=== PATIENT | male | born 2000 | race African-American/Black ===

== ENCOUNTER 2020-08-20 15:46 | Inpatient (IN) | payer OTHER ==
[~2020-08-20] VITALS: Ht 175.3 cm; Wt 75.0 kg
[2020-08-20 17:04] LABS: AMPHETAMINES LEVEL URINE NEGATIVE (NEGATIVE); BARBITURATES URINE NEGATIVE (NEGATIVE); BENZODIAZEPINES URINE NEGATIVE (NEGATIVE); CANNABINOIDS URINE POSITIVE (NEGATIVE); COCAINE METABOLITE URINE NEGATIVE (NEGATIVE); METHADONE URINE NEGATIVE (NEGATIVE); OPIATES URINE NEGATIVE (NEGATIVE); PHENCYCLIDINE URINE NEGATIVE (NEGATIVE)
[2020-08-20 17:16] LABS: HEMATOCRIT 42.9 % (42.0-52.0); HEMOGLOBIN 13.8 g/dl (13.5-17.5); MEAN CORPUSCULAR HEMOGLOBIN 26.7 pg (27.0-33.0); MEAN CORPUSCULAR HGB CONC 32.2 g/dl (32.0-36.5); MEAN CORPUSCULAR VOLUME 83.1 fl (80.0-96.0); PLATELET COUNT, AUTOMATED 179 10^3/uL (150-450); RED BLOOD COUNT 5.16 10^6/uL (4.30-6.10); WHITE BLOOD COUNT 5.7 10^3/uL (4.0-10.0)
[2020-08-20 17:19] LABS: ACETAMINOPHEN LEVEL < 2.0 UG/ML (10.0-30.0); ALT/SGPT 17 U/L (12-78); BILIRUBIN,DIRECT 0.3 MG/DL (0.0-0.2); BILIRUBIN,TOTAL 1.3 MG/DL (0.2-1.0); BLOOD UREA NITROGEN 9 MG/DL (7-18); CALCIUM LEVEL 9.5 MG/DL (8.5-10.1); CARBON DIOXIDE LEVEL 29 MEQ/L (21-32); CHLORIDE LEVEL 105 MEQ/L (98-107); CREATININE FOR GFR 0.98 MG/DL (0.70-1.30); ETHYL ALCOHOL (ETHANOL) 0.003 % (0.000-0.010); GLUCOSE, FASTING 78 MG/DL (70-100); POTASSIUM SERUM 3.7 MEQ/L (3.5-5.1); SALICYLATE LEVEL < 1.7 MG/DL (5.0-30.0); SODIUM LEVEL 139 MEQ/L (136-145); TOTAL PROTEIN 7.8 GM/DL (6.4-8.2)
[2020-08-20] MEDS ORDERED: traZODone 50 MG TAB PO PRN (18:15)
[2020-08-20] MEDS ORDERED: ACETAMINOPHEN TAB 650MG DOSE (2X325MG) PO PRN (18:15)
[2020-08-20] MEDS ORDERED: MAALOX 30 ML SUSP *UDC PO PRN (18:15)
[2020-08-20] MEDS ORDERED: MOM 30ML SUSPENSION UDC PO PRN (18:15)
[2020-08-20 22:50] VITALS: BP 108/58
[2020-08-21 06:25] VITALS: BP 98/57
[2020-08-21] MEDS: hydrOXYzine 50 MG TAB PO SCH ×3 (15:06→23:35)
--- NOTE | 2020-08-21 16:16 | MHHPEPDOC ---
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 He reports that this feeling of suicidality started approximately a week ago. But he reports that he has been stressed for over a year since his being stationed at [employer]. PER ED REPORT: Pt was brought to the ED by [facility] after pt voiced SI with plan to drink antifreeze. Pt states, "I've been feeling suicidal and I want to drink antifreeze." Pt reports struggling with suicidal thoughts for the past few weeks, however thoughts have intensified after getting in trouble for lying at work. Pt reports he traveled to [place] over the weekend after someone inspired him on YouTube so he went to see a concert. It was reported pt. was supposed to be on staff duty and ended up lying about where he was over the weekend, but he admits telling the truth. Pt identifies suicidal stressors as being bullied by his [employer] and sees no other way out other than killing himself. He believes his [employer] is toxic and is causing his suicidal thoughts. He continues to voice SI plan(as described above). Psychiatric Review of Systems Depression (2 or more weeks): depressed mood, feelings of worthlesness, suicidal thoughts Clau (4 or more days of): irritable/elevated mood Psychosis: denies PTSD: denies Anxiety: denies Past Psychiatric History Previous Psychiatric Diagnosis: None Previous Psychiatric Admissions: This is his first admission. Suicide Attempts: Denies any past attempt. Psychiatric Follow-up: Patient will follow up at [employer]. Psychiatric medications: Patient does not take any psychiatric medications he is not requesting any. Past Medical History Medical Problems Reports no contributory medical history states he has asthma surgeries: Oral surgery Allergies: Seasonal allergies Head Injury: No Seizures: No Hospitalizations: No Surgeries: No Family Medical/Psychiatric HX Medical Problems Maternal grandfather and aunt with "Split Personalities" when asked about whether or not he feels this is schizophrenia he states "I do not know" Psychiatric Disorders: Yes Addiction: No Suicide Attemps/Completions: No Addiction History denies Social History Childhood: Born in [facility]. Grew up with mom father was in the picture occasionally has an older sister and a half brother. States that he did well in elementary school his grades dropped in middle school. Describes his childhood "broken, rough " Abuse/Trauma: Denied. Current Living Situation: [place] post. Education: High school diploma. Employment: Active duty soldier. Social Support: and sister. Legal: None. Marital: Stressors: Work, family. Mental Status Examination General Appearance: well groomed, appears stated age, hospital scubs/clothing Build: average Demeanor: average Eye Contact: average Activity: average Speech: clear, normal volume, reg/rate,rhythm,volume Mood: depressed, anxious Affect: full Thought Process: logical/linear Thought Content (Delusions): none reported Thought Content (Other): none reported Thought Content (Aggressive): none reported Perception (Hallucinations): none reported Perception (Other): none reported Cognition (Impairment of): none reported Cognition(Intelligence Est.): average Oriented: Awake, Alert, Oriented times three Insight: fair Judgment: Fair Psychosis: Denies Diagnoses Unspecified depressive disorder A-FIB/CHADSVASC A-FIB History Current/History of A-Fib/PAF?: No Current PO Anticoag Therapy: No Assessment 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 He reports that this feeling of suicidality started approximately a week ago. But he reports that he has been stressed for over a year since his being stationed at [employer]. 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 He made a suicidal statement after he was caught lying. The patient to be discharged when he is stable he will be afforded individual and group therapy, encouraged to be in the milieu, patient denies that he needs any medication, ordered hydroxyzine for his anxiety will speak to the patient again tomorrow about a small dose of antidepressant Initial Treatment Plan 1. Patient was admitted on a [9.39] status. 2. Complete history was obtained. 3. With patients permission, family will be contacted and database will be exp anded. 4. Patients medication regimen will be reviewed and changed accordingly. 5. Patient will be provided with protected environment. 6. Patient will be treated with individual, group, and milieu therapies. 7. Patient will receive supportive psych-education. 8. Discharge planning will commence immediately. 9. Outpatient follow-up treatment will be strongly recommended. 10. The initial treatment plan will focus initially on: * Depression. * Risk for suicide. ESTIMATED LENGTH OF STAY: 1-3 DAYS. TIME SPENT COUNSELING AND COORDINATING INITIAL CARE: 60 minutes. N/A-No Antipsychotics Vital Signs Vital Signs Date Time Temp Pulse Resp B/P (MAP) Pulse Ox O2 Delivery O2 Flow Rate FiO2 08/21/20 06:25 98.1 82 16 98/57 (71) 98 Room Air Laboratory Data 24H Labs Laboratory Tests 2 08/20/20 16:24: Nucleated Red Blood Cells % (auto) 0.0, Anion Gap 5L, Calcium Level 9.5, Total Bilirubin 1.3H, Direct Bilirubin 0.3H, Aspartate Amino Transf (AST/SGOT) 23, Alanine Aminotransferase (ALT/SGPT) 17, Alkaline Phosphatase 81, Total Protein 7.8, Albumin 5.0, Albumin/Globulin Ratio 1.8, Thyroid Stimulating Hormone (TSH) 1.850, Salicylates Level < 1.7L, Urine Opiates Screen NEGATIVE, Urine Methadone Screen NEGATIVE, Acetaminophen Level < 2.0L, Urine Barbiturates Screen NEGATIVE, Urine Phencyclidine Screen NEGATIVE, Urine Amphetamines Screen NEGATIVE, Urine Benzodiazepines Screen NEGATIVE, Urine Cocaine Metabolite Screen NEGATIVE, Urine Cannabinoids Screen POSITIVEH, Ethyl Alcohol Level 0.003 CBC/BMP Laboratory Tests 08/20/20 16:24 Medications No Active Prescriptions or Reported Meds Allergies Coded Allergies: SEASONAL ALLERGIES (Verified Allergy, Unknown, 08/20/20) JOSY TATE NP Aug 21, 2020 13:17
--- NOTE | 2020-08-21 17:23 | HPEPDOC ---
[facility] Medical History & Physical Date of Admission Aug 21, 2020 Date of Service: Aug 21, 2020 History and Physical CHIEF COMPLAINT: Suicidal ideation HISTORY OF PRESENT ILLNESS: 19-year-old male with a history of depression, presented to the ER before drawn EMS after patient stated to them suicidal ideations with plan to drink antifreeze. 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 He reports traveling to [place] for a concert and lying about where he was over the weekend while he was supposed to be active duty. Hospitalist service was consulted for medical intake. At this time, patient denies any chest pain, seizures of breath, palpitations, nausea, vomiting or diarrhea. Review shows elevated total bilirubin 1.3, indirect bilirubin elevated to 0.3. She denies any abdominal pain, skin changes, pale stools or dark urine. PAST MEDICAL HISTORY: depression, suicidal ideation PAST SURGICAL HISTORY: Reports no prior surgical history SOCIAL HISTORY: Patient denies smoking Patient denies etoh use Patient denies illicit drug use ALLERGIES: Please see below. REVIEW OF SYSTEMS: 10 point review of systems was conducted, regular findings are noted in HPI. HOME MEDICATIONS: Please see below. PHYSICAL EXAMINATION: VITAL SIGNS: please see below General: NAD, comfortable HEENT: PERRLA, EOMI, sclerae clear Neck: supple, normal ROM, no JVD Respiratory: lungs CTAB, no wheeze, no rales, no crackles CVS: RRR, normal S1, S2, no murmurs Abdo: soft, no masses, no hepatosplenomegaly, BS+, no rebound tenderness Extremities: no edema, pulses 2+ MSK: no joint deformities, normal ROM Neuro: no focal neuro deficits, moving all 4 extremities, CN2-12 intact. Strength 5/5 in all 4 extremities. No nystagmus. Psych: calm, cooperative, AAO x 3 LABORATORY DATA: See below. MICROBIOLOGY: Please see below. ASSESSMENT: 19 yo male brought to ER by [facility] after voicing suicidal ideation with plan to drink antifreeze. Hospitalist service consulted for medical intake. Lab review showing elevated total bilirubin and direct bilirubin. PLAN: Suicidal ideation: per psychiatry Elevated bilirubin: T bili 1.3. D bili 0.3. Repeat CMP. If elevated, obtain liver US. Thank you for involving me in the care of this patient. Please reconsult as needed. Vital Signs Vital Signs Date Time Temp Pulse Resp B/P (MAP) Pulse Ox O2 Delivery O2 Flow Rate FiO2 08/21/20 06:25 98.1 82 16 98/57 (71) 98 Room Air Home Medications No Active Prescriptions or Reported Meds Allergies Coded Allergies: SEASONAL ALLERGIES (Verified Allergy, Unknown, 08/20/20) JENA LÓPEZ MD Aug 21, 2020 17:23
[2020-08-21 19:04] LABS: ALT/SGPT 18 U/L (12-78); BILIRUBIN,DIRECT 0.3 MG/DL (0.0-0.2); BILIRUBIN,TOTAL 1.3 MG/DL (0.2-1.0); BLOOD UREA NITROGEN 12 MG/DL (7-18); CALCIUM LEVEL 9.2 MG/DL (8.5-10.1); CARBON DIOXIDE LEVEL 28 MEQ/L (21-32); CHLORIDE LEVEL 107 MEQ/L (98-107); GLUCOSE, FASTING 92 MG/DL (70-100); POTASSIUM SERUM 3.9 MEQ/L (3.5-5.1); SODIUM LEVEL 144 MEQ/L (136-145); TOTAL PROTEIN 7.1 GM/DL (6.4-8.2)
[2020-08-21 19:11] VITALS: BP 153/98
[2020-08-22] MEDS: hydrOXYzine 50 MG TAB PO SCH ×4 (06:21→23:25)
[2020-08-22 06:42] VITALS: BP 138/63
--- NOTE | 2020-08-22 11:50 | MHIPNPDOC ---
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 He reports that this feeling of suicidality started approximately a week ago. But he reports that he has been stressed for over a year since his being stationed at [employer]. PER ED REPORT: Pt was brought to the ED by [facility] after pt voiced SI with plan to drink antifreeze. Pt states, "I've been feeling suicidal and I want to drink antifreeze." Pt reports struggling with suicidal thoughts for the past few weeks, however thoughts have intensified after getting in trouble for lying at work. Pt reports he traveled to [place] over the weekend after someone inspired him on YouTube so he went to see a concert. It was reported pt. was supposed to be on staff duty and ended up lying about where he was over the weekend, but he admits telling the truth. Pt identifies suicidal stressors as being bullied by his [employer] and sees no other way out other than killing himself. He believes his [employer] is toxic and is causing his suicidal thoughts. He continues to voice SI plan(as described above). VITAL SIGNS: See below. CURRENT MEDICATIONS: See below. 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 General Appearance: well groomed, appears stated age, hospital scrubs/clothing Build: average Demeanor: average Eye Contact: average Activity: average Speech: clear, normal volume, reg/rate,rhythm,volume Mood: euthymic Affect: constricted, incongruency noted Thought Process: logical/linear Thought Content (Delusions): none reported Thought Content (Other): none reported Thought Content (Aggressive): none reported Perception (Hallucinations): none reported Perception (Other): none reported Cognition (Impairment of): none reported Cognition(Intelligence Est.): average Oriented: Awake, Alert, Oriented times three Insight: fair Judgment: Fair Psychosis: Denies DIAGNOSES: Unspecified depressive disorder ASSESSMENT: Patient denies being depressed today, denies anxiety and denies thoughts to kill himself. When asked about reasons for living he states 1) "I am ", 2) wants to live, 3) wants to continue his work on [employer]. States that he does not want to or take his life. He was encouraged to talk in individual therapy but he denies that he has any subjects that he wanted to discuss. He is requesting to be discharged. States that he wants to be home with his . He states that he is impulsive with his thinking and that when he is stressed he thinks very negatively. Patient may be discharged tomorrow pending treatment team meeting. MANAGEMENT PLAN: Possible discharge tomorrow TIME SPENT: 25 minutes. Vital Signs Vital Signs Date Time Temp Pulse Resp B/P (MAP) Pulse Ox O2 Delivery O2 Flow Rate FiO2 08/22/20 06:42 97.9 71 16 138/63 (88) 97 Room Air Laboratory Data 24H Labs Laboratory Tests 2 08/21/20 17:42: Anion Gap 9, Calcium Level 9.2, Total Bilirubin 1.3H, Direct Bilirubin 0.3H, Aspartate Amino Transf (AST/SGOT) 21, Alanine Aminotransferase (ALT/SGPT) 18, Alkaline Phosphatase 78, Total Protein 7.1, Albumin 4.0, Albumin/Globulin Ratio 1.3 CBC/BMP Laboratory Tests 08/21/20 17:42 Current Medications Current Medications Medications (Trade) Dose Ordered Sig/Rossy Route PRN Reason Start Time Stop Time Status Last Admin Dose Admin Acetaminophen (Tylenol Tab) 650 mg Q6HP PRN PO HEADACHE or MILD DISCOMFORT 08/20/20 18:15 Al Hydrox/Mg Hydrox/Simethicone (Mylanta) 30 ml Q4HP PRN PO HEARTBURN/INDIGESTION 08/20/20 18:15 Home Med (Med Rec Complete!) ASDIRECTED XX 08/20/20 18:20 08/20/20 18:21 DC Hydroxyzine HCl (Atarax) 50 mg Q6H PO 08/21/20 12:00 08/22/20 06:21 Magnesium Hydroxide (Milk Of Magnesia) 30 ml DAILYPRN PRN PO CONSTIPATION 08/20/20 18:15 Trazodone HCl (Desyrel) 50 mg QHSP PRN PO INSOMNIA 08/20/20 18:15 Allergies Coded Allergies: SEASONAL ALLERGIES (Verified Allergy, Unknown, 08/20/20) JOSY TATE HOME SUPPORT WORKER Aug 22, 2020 11:50
[2020-08-22 17:03] VITALS: BP 134/61
[2020-08-23 06:00] VITALS: BP 120/62
[2020-08-23] MEDS: hydrOXYzine 50 MG TAB PO SCH (06:14)
--- NOTE | 2020-08-23 10:48 | MHDSPDOC ---
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 He reports that this feeling of suicidality started approximately a week ago. But he reports that he has been stressed for over a year since his being stationed at [place]. PER ED REPORT: Pt was brought to the ED by [facility] after pt voiced SI with plan to drink antifreeze. Pt states, "I've been feeling suicidal and I want to drink antifreeze." Pt reports struggling with suicidal thoughts for the past few weeks, however thoughts have intensified after getting in trouble for lying at work. Pt reports he traveled to [place] over the weekend after someone inspired him on [employer] so he went to see a concert. It was reported pt. was supposed to be on staff duty and ended up lying about where he was over the weekend, but he admits telling the truth. Pt identifies suicidal stressors as being bullied by his [employer] and sees no other way out other than killing himself. He believes his [employer] is toxic and is causing his suicidal thoughts. He continues to voice SI plan(as described above). VITAL SIGNS: SEE BELOW CONSULTANTS INVOLVED: See Medical H + P by Hospitalist VITAL SIGNS: See below. TREATMENT AND PROGRESS ON THE UNIT: Patient was admitted to the [facility] on a 9.39 legal status he was afforded the following treatment modalities: 1) Individual Therapy 2) Group Therapy 3) Medication Management 4) Milieu Therapy 5) Safe Environment HOSPITAL COURSE: Patient was admitted to [facility] on a 9.39 legal status. Patient declined antidepressants stating that he does not feel that his depression warrants it. He stated that he felt his chain of command was toxic and that he is hoping to transfer out of his unit. The patient was not observed with depressive symptoms suicidal ideations or anxiety. He was social with peers, cooperative in the milieu, attended group therapy and was engaged in individual sessions. 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 He denies that he has any thoughts of self harm to himself or others. States that he only has a little more than a year in his contract with the [employer] and plans on moving to [place] after. Patient is requesting to be discharged and he needs criteria by the treatment team. DISCHARGE ASSESSMENT: In today's interview, patient is alert and oriented, pts dress is appropriate. Hygiene and grooming is well-kempt. Smiles on approach and is pleasant and engaged in the interview. Denies depression and anxiety. Denies suicidal and homicidal ideation, planning or intent. Denies and is not observed with isael, psychotic symptoms of delusions, bizarre thinking, obsessions, paranoia, ruminations illogical thoughts, flight of ideas or having poor insight and judgement. Patient has normal mentation, declines further hospitalization on a voluntary status and meets criteria for discharge today. Patient encouraged to return to hospital if symptoms worsen or change and encouraged to call unit if he/she/they needs to speak to provider for questions regarding medications or care. 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 His hygiene and grooming is well kempt. He makes good eye contact. He is calm and cooperative in the interview. Speech: Is fluid, conversant, normal rate, tone and volume Language skills are intact Thought processes including: linear and goal oriented Thought content: denies depression and anxiety. Denies suicidal/homicidal ideation, planning or intent. Abstract reasoning, and computation: fair Description of associations: denies, none observed Description of abnormal or psychotic thoughts: denies, none observed. Judgment: fair Insight: fair Orientation: alert and oriented to person, place, time and situation Recent and remote memory: intact Attention span and concentration: good Language: expansive Fund of knowledge: average Mood: Euthymic Mood Affect: reactive MEDICATIONS ON DISCHARGE: See Medication Reconciliation PLAN/FOLLOWUP ARRANGEMENTS: [facility] The amount of time spent in the coordination of care for this patient was approximately 25 minutes. ETOH/Disorder Med Rx ETOH/DRUG DISORDER RX: N/A Vital Signs/I&Os Vital Signs Date Time Temp Pulse Resp B/P (MAP) Pulse Ox O2 Delivery O2 Flow Rate FiO2 08/23/20 06:00 98.5 57 20 120/62 (81) 100 7/8/21 06:42 Room Air Medications No Active Prescriptions or Reported Meds Allergies Coded Allergies: SEASONAL ALLERGIES (Verified Allergy, Unknown, 08/20/20) JOSY TATE NP Aug 23, 2020 10:48
== END 2020-08-23 11:19 | disposition home or self-care (01) | DRG 885 ==
LOC: M ED 15:46 → M ED INP 18:14 → M PSY 22:50
PROVIDERS: ADMIT Psychiatry & Neurology Psychiatry; ATTEND Psychiatry & Neurology Psychiatry
DX: F32.89 Other specified depressive episodes (principal); R45.851 Suicidal ideations; Z56.4 Discord with boss and workmates

== ENCOUNTER 2020-09-03 06:36 | Emergency (ER) | payer OTHER ==
[~2020-09-03] VITALS: Ht 177.8 cm; Wt 75.0 kg
--- NOTE | 2020-09-03 08:07 | REP ---
INDICATION: punched wall with hand. COMPARISON: None. TECHNIQUE: Four views of the right hand. FINDINGS: Four views of the right hand demonstrate soft tissue swelling over the dorsal aspect of the 5th PIP joint and 5th MCP joint. There is some soft tissue irregularity at the PIP joint of the 5th digit suggesting a laceration. No fracture is seen. No opaque foreign body is no. . . IMPRESSION: No fracture seen. Soft tissue swelling.. <Electronically signed by Yair Blackmon > 09/03/20 0853
[2020-09-03] MEDS ORDERED: NEOSPORIN OINT 0.9 GM PKT TOP ONE (08:45)
[2020-09-03 09:30] VITALS: BP 117/62
== END 2020-09-03 10:00 | disposition home or self-care (01) ==
LOC: M ED 06:36
DX: S60.511A Abrasion of right hand, initial encounter (principal); S60.512A Abrasion of left hand, initial encounter; W22.8XXA Striking against or struck by other objects, initial encounter; Y92.9 Unspecified place or not applicable; Y93.9 Activity, unspecified; Y99.9 Unspecified external cause status; F17.200 Nicotine dependence, unspecified, uncomplicated; F12.10 Cannabis abuse, uncomplicated

== ENCOUNTER → 2021-01-31 | Outpatient (REF) ==
[~2021-01-31] MED LIST: NICO14PA TD; SERT50TA29 PO; VITMTA PO
== END ==
LOC: M PLAIMG 09:52
PROVIDERS: ATTEND Internal Medicine
DX: R06.02 Shortness of breath (principal)

== ENCOUNTER 2021-03-11 14:52 | Inpatient (IN) | payer OTHER ==
[~2021-03-11] VITALS: Ht 182.9 cm; Wt 72.7 kg
[2021-03-12] MEDS ORDERED: VITMTA PO (06:05)
[2021-03-17 06:16] VITALS: BP 113/56
[2021-03-17] MEDS ORDERED: NICO14PA TD (09:45)
[2021-03-17] MEDS ORDERED: SERT50TA29 PO (09:45)
== END 2021-03-17 12:54 | disposition home or self-care (01) | DRG 885 ==
LOC: M ED 14:52 → M ED INP 03-13 14:27 → M PSY 03-13 15:36
PROVIDERS: ADMIT Student in an Organized Health Care Education/Training Program; ATTEND Student in an Organized Health Care Education/Training Program
DX: F33.9 Major depressive disorder, recurrent, unspecified (principal); R45.851 Suicidal ideations; F12.90 Cannabis use, unspecified, uncomplicated; F10.10 Alcohol abuse, uncomplicated; F17.200 Nicotine dependence, unspecified, uncomplicated; F41.1 Generalized anxiety disorder; Z63.0 Problems in relationship with spouse or partner; Z62.810 Personal history of physical and sexual abuse in childhood; Z91.82 Personal history of military deployment; F43.10 Post-traumatic stress disorder, unspecified